=== PATIENT | female | born 1990 | race Two or more races ===

== ENCOUNTER 2025-04-14 10:00 | Day surgery (SDC) | payer MEDICAID, SELFPAY ==
[2025-04-13 15:52] LABS: HCG Qualitative,Urine Negative
[2025-04-14] VITALS (10 sets, daily range): BP systolic 114–140; BP diastolic 77–97; PULSE 87–106; RESP 16–20; TEMP 36.4–36.7; O2SAT 97–100; BMI 31.5
[2025-04-14] MEDS: RINGERS LACTATED 1000 ML 1,000 ML 125 ML IV (11:26)
[2025-04-14] MEDS: fentaNYL CIT INJ 50 mCg/ML AMP 2ML (ASD USE ONLY) IVP (11:36)
[2025-04-14] MEDS: LIDOCAINE JELLY 2% (Urojet) 10 ML TUBE TOP (11:36)
[2025-04-14] MEDS: MIDAZOLAM INJ 1 MG/ML VIAL 2 ML (ASD USE ONLY) 2 MG IVP (11:42)
== END 2025-04-14 12:45 | disposition home or self-care (01) ==
PROVIDERS: PCP Family Medicine; Referring Provider Internal Medicine Gastroenterology; Visit Provider Internal Medicine Gastroenterology
PROC: 0DBE8ZX Excision of Large Intestine, Via Natural or Artificial Opening Endoscopic, Diagnostic (ICD-10-PCS; CPT 45380; principal; 2025-04-14 10:30)
DX: K92.1 Melena (principal); I10 Essential (primary) hypertension; K64.1 Second degree hemorrhoids
CPT/HCPCS: 45380; 81025; A4649; J1200; J2250; J3010; J7120